=== PATIENT | female | born 1980 | race Caucasian/White ===

== ENCOUNTER 2018-04-12 13:06 | Emergency (ER) | payer SELFPAY ==
[~2018-04-12] VITALS: Ht 162.6 cm; Wt 76.7 kg
[2018-04-12 15:16] LABS: Basophils # (auto) 0.1 uL; Basophils % (auto) 1.4 % (0.0-2.0); Eosinophils # (auto) 0.5 uL; Eosinophils % (auto) 6.1 % (0.0-7.0); Hemoglobin 14.5 g/dL (12.2-16.2); Lymphocytes # (auto) 2.6 uL; Lymphocytes % (auto) 32.4 % (10.0-50.0); Mean Corpuscular Hemoglobin 32.2 pg (28.0-32.0); Mean Corpuscular Hgb Conc. 33.8 g/dL (32.0-36.0); Mean Corpuscular Volume 95.3 fL (80.0-100.0); Monocytes # (auto) 0.9 uL; Monocytes % (auto) 11.2 % (0.0-12.0); Neutrophils # (auto) 3.9 uL; Neutrophils % (auto) 48.9 % (37.0-80.0); Nucleated Red Blood Cells % 0.1 %; Platelet Count (auto) 356 10^3/uL (140-450); Red Blood Cells 4.51 10^6/uL (4.0-5.20); Red Cell Distribution Width 14.6 % (11.8-14.3); White Blood Cell 7.9 10^3/uL (4.4-10.8)
[2018-04-12 15:37] LABS: Albumin 3.5 g/dL (3.4-5.0); BUN/Creatinine Ratio 26.6; Bilirubin, Total 0.2 mg/dL (0.2-1.0); Calcium 7.9 mg/dL (8.5-10.1); Potassium 4.4 mmol/L (3.5-5.1); Total Protein 7.6 g/dL (6.4-8.2)
[2018-04-12 16:09] VITALS: BP 138/82
== END 2018-04-12 16:14 | disposition home or self-care (01) ==
LOC: ER 13:06
DX: N93.9 Abnormal uterine and vaginal bleeding, unspecified (principal); E07.89 Other specified disorders of thyroid; Z98.51 Tubal ligation status; Z90.89 Acquired absence of other organs; Z88.2 Allergy status to sulfonamides
CPT/HCPCS: 36415; 80053; 85025

== ENCOUNTER 2020-11-20 11:21 | Emergency (ER) | payer MEDICAID, OTHER ==
[~2020-11-20] VITALS: Ht 162.6 cm; Wt 97.5 kg
[2020-11-20 12:02] VITALS: BP 121/96
== END 2020-11-20 13:56 | disposition home or self-care (01) ==
LOC: ER 11:21
DX: U07.1 COVID-19 (principal)
CPT/HCPCS: 36415; 71045; 87426

== ENCOUNTER 2021-11-13 12:48 | Emergency (ER) | payer MEDICAID ==
[~2021-11-13] VITALS: Ht 165.1 cm; Wt 113.4 kg
[2021-11-13 15:02] VITALS: BP 151/99
== END 2021-11-13 19:08 | disposition left against medical advice (07) ==
LOC: EDBD 12:48 → ER 12:48
DX: S81.812A Laceration without foreign body, left lower leg, initial encounter (principal); S00.83XA Contusion of other part of head, initial encounter; Z53.21 Procedure and treatment not carried out due to patient leaving prior to being seen by health care provider; Y00.XXXA Assault by blunt object, initial encounter; Y93.89 Activity, other specified; Y92.89 Other specified places as the place of occurrence of the external cause; Y99.8 Other external cause status
CPT/HCPCS: 70450; 70486

== ENCOUNTER 2022-04-29 12:05 | Emergency (ER) | payer MEDICAID ==
[~2022-04-29] VITALS: Ht 160 cm; Wt 113.4 kg
[2022-04-29 12:15] VITALS: BP 215/154
[2022-04-29 13:59] LABS: Basophils # (auto) 0.1 10 ^3/uL (0-0.2); Basophils % (auto) 0.6 % (0.0-2.0); Eosinophils # (auto) 0 10 ^3/uL (0-0.8); Eosinophils % (auto) 0.2 % (0.0-7.0); Hematocrit 40.6 % (36.0-46.0); Hemoglobin 13.2 g/dL (12.2-16.2); Lymphocytes # (auto) 1.5 10 ^3/uL (0.4-5.4); Lymphocytes % (auto) 8.8 % (10.0-50.0); Mean Corpuscular Hemoglobin 31.2 pg (28.0-32.0); Mean Corpuscular Hgb Conc. 32.5 g/dL (32.0-36.0); Monocytes # (auto) 1.6 10 ^3/uL (0-1.3); Monocytes % (auto) 9.2 % (0.0-12.0); Neutrophils # (auto) 13.9 10 ^3/uL (1.6-8.6); Neutrophils % (auto) 81.2 % (37.0-80.0); Red Blood Cells 4.22 10^6/uL (4.0-5.20); Red Cell Distribution Width 16.5 % (11.8-14.3); White Blood Cell 17.2 10^3/uL (4.4-10.8)
[2022-04-29 14:19] LABS: BUN/Creatinine Ratio 4.4; Potassium 3.7 mmol/L (3.5-5.1)
[2022-04-29 14:22] LABS: Bilirubin, Total 0.6 mg/dL (0.2-1.0)
[2022-04-29] MEDS ORDERED: EPINEPHrine HCL 250 ML IV ONE (15:21)
[2022-04-29] MEDS ORDERED: DOPamine 1600MCG/ML D5W 0 ML IV ONE (15:26)
[2022-04-29] MEDS ORDERED: EPINEPHrine HCL 1 MG/10 ML SYRG ONE (15:33)
[2022-04-29] MEDS ORDERED: SODIUM BICARBONATE 8.4% INJ 50ML SYRINGE ONE (15:33)
[2022-04-29] MEDS ORDERED: CALCIUM CHLOR(10%) 100MG/ML 10ML SYRINGE IV ONE (15:33)
== END 2022-04-29 18:35 ==
LOC: ER 12:05
DX: I46.9 Cardiac arrest, cause unspecified (principal); Q79.60 Ehlers-Danlos syndrome, unspecified; I25.2 Old myocardial infarction; E03.9 Hypothyroidism, unspecified; Z90.49 Acquired absence of other specified parts of digestive tract; Z90.89 Acquired absence of other organs; Z88.2 Allergy status to sulfonamides
CPT/HCPCS: 31500; 36415; 36600; 80053; 82805; 83605; 83880; 84484; 85025; 87040; 93005; 94660; 99285; J0171; 87077; 87186